=== PATIENT | female | born 1990 ===

== ENCOUNTER 2017-01-30 09:54 | Emergency (ER) | payer MEDICAID, OTHER ==
[2017-01-30 10:23] VITALS: O2SAT 98
[2017-01-30 10:25] VITALS: BP 113/69; PULSE 65; RESP 16; TEMP 98.3
--- NOTE | 2017-01-30 12:46 | ED PDOC ---
HPI: General Adult Time Seen by Provider: 01/30/17 10:18 Chief Complaint (Nursing): Lower Extremity Problem/Injury History Per: Patient Additional Complaint(s): Pt. states for the past 2 weeks she's had b/l lower leg pain R > L. States that she is currently 33 weeks . She was seen by Dr. Lopez OBGYN, yesterday who instructed her to come to ED for a doppler US yesterday but states it was already late. Denies SOB, palpitations, vaginal bleeding, abdominal pain, hx of DVT or PE, hemoptysis. Past Medical History Reviewed: Historical Data, Nursing Documentation, Vital Signs Vital Signs: Last Vital Signs Temp 98.3 F 01/30/17 10:15 Pulse 65 01/30/17 10:15 Resp 16 01/30/17 10:15 BP 113/69 01/30/17 10:15 Pulse Ox 98 01/30/17 12:49 - Family History Family History: States: No Known Family Hx - Immunization History Hx Tetanus Toxoid Vaccination: No Hx Influenza Vaccination: Yes Hx Pneumococcal Vaccination: No - Home Medications Home Medications: Ambulatory Orders Medication Instructions Recorded Multivit/Folic Acid/I 1 tab PO DAILY 05/25/16 [ Plus] - Allergies Allergies/Adverse Reactions: Allergies Allergy/AdvReac Type Severity Reaction Status Date / Time No Known Allergies Allergy Verified 05/25/16 13:11 Review of Systems ROS Statement: Except As Marked, All Systems Reviewed And Found Negative Musculoskeletal: Positive for: Leg Pain Physical Exam - Physical Exam Appears: Positive for: Well, Non-toxic, No Acute Distress Skin: Positive for: Normal Color, Warm. Negative for: Rash Cardiovascular/Chest: Positive for: Regular Rate, Rhythm. Negative for: Tachycardia Respiratory: Positive for: CNT, Normal Breath Sounds Gastrointestinal/Abdominal: Positive for: Normal Exam, Soft. Negative for: Tenderness Back: Positive for: Normal Inspection. Negative for: L CVA Tenderness, R CVA Tenderness Extremity: Positive for: Normal ROM. Negative for: Calf Tenderness (or swelling b/l) Neurologic/Psych: Positive for: Alert, Oriented - ECG O2 Sat by Pulse Oximetry: 98 - Progress ED Course And Treament: Pt. left prior to obtaining results. Duplex b/l lower extremity: no DVT. Results d/w Dr. Lopez and will f/u with patient. Disposition - Clinical Impression Clinical Impression: Leg pain - Patient ED Disposition Is Patient to be Admitted: No - Disposition Disposition: Eloped Disposition Time: 13:35 Condition: FAIR Forms: [facility] (Slovenian)
--- NOTE | 2017-01-30 15:05 | US ---
PROCEDURE: Bilateral lower extremity venous duplex Doppler. HISTORY: pain COMPARISON: None available. TECHNIQUE: Bilateral common femoral, superficial femoral, popliteal and posterior tibial veins were evaluated. Flow was assessed with color Doppler, compressibility, assessment of phasic flow and augmentation response. FINDINGS: COMMON FEMORAL VEIN: Right CFV: Unremarkable. Left CFV: Unremarkable. SUPERFICIAL FEMORAL VEIN: Right SFV: Unremarkable. Left SFV: Unremarkable. POPLITEAL VEIN: Right Popliteal: Unremarkable. Left Popliteal: Unremarkable. POSTERIOR TIBIAL VEIN: Right PTV: Unremarkable. Left PTV: Unremarkable. OTHER FINDINGS: None. IMPRESSION: No evidence of deep venous thrombosis.
== END 2017-01-30 13:35 | disposition left against medical advice (07) ==
LOC: H.ER 09:54
DX: M79.606 Pain in leg, unspecified (principal); Z3A.33 33 weeks gestation of pregnancy

== ENCOUNTER 2017-03-15 08:04 | Inpatient (IN) | payer OTHER ==
[2017-03-15] MEDS: Lactated Ringer's 1,000 ML IV SCH (08:05)
[2017-03-15 08:18] VITALS: BMI 31.6
[2017-03-15] MEDS ORDERED: Oxytocin 30 units/LR 500ML 30 U/500 ML BAG IV SCH (08:30)
[2017-03-15] MEDS ORDERED: Lactated Ringer's 1,000 ML IV SCH (08:30)
--- NOTE | 2017-03-15 08:50 | OBADHP ---
Datetime: 03/15/2017 08:44 Admit Comment, IP Provider: Came in in full labor Admit and anticipate delivery Pelvic Type - PN: Adequate Extremities - PN: Normal Abdomen - PN: Abnormal Breast - PN: Normal Lungs - PN: Normal Thyroid - PN: Normal Neurologic - PN: Normal HEENT - PN: Normal General - PN: Normal Presentation-Admit: cephalic FHR - Baseline A Provider: 150 Membranes, Provider: Intact Contraction Comments Provider: q2 min Comments, ACOG Physical Exam: ABD gravid fundus at term NT, ext no calf tenderness Gestation - Est Wks by US: 39 wks IP Hx Assessment: The History has been Reviewed and is Current Vital Signs Provider: Reviewed IP Chief Complaint: Uterine contractions NICHD Variability Prov Fetus A: Moderate 6-25bpm NICHD Accel Fetus A IP Provider: [id number] NICHD Decel Fetus A IP Provider: None Dilatation, Provider: 8-9 Effacement, Provider: 100% Genitourinary Exam: Normal DTRs - PN: Normal EGA AdmitDate IP: 39.2 IP Adm Impression: Term, intrauterine ; Active labor IP Admit Plan: Admit to unit; Initiate labor protocol
[2017-03-15] MEDS ORDERED: Oxycodone/Acetaminophen 5/325 mg Tab PO PRN ×2 (09:01→13:04)
[2017-03-15 09:24] LABS: BASO % 0.3 % (0.0-2.0); EOS % 0.4 % (0.0-4.0); LYMPH # 3.5 K/uL (1.0-4.3); LYMPH % 35.6 % (20.0-40.0); MEAN CELL VOLUME 83.1 fl (81.0-99.0); MEAN CORPUSCULAR HGB CONC 33.6 g/dL (33.0-37.0); MEAN PLATELET VOLUME 9.5 fl (7.2-11.7); MONO # 0.8 K/uL (0.0-0.8); MONO % 8.4 % (0.0-10.0); NEUT # 5.5 K/uL (1.8-7.0); NEUT % 55.3 % (50.0-75.0); NRBC % 0.1 % (0.0-0.0); WHITE BLOOD COUNT 9.9 K/uL (4.8-10.8)
[2017-03-16] MEDS: Lactated Ringer's 1,000 ML IV SCH (02:17)
[2017-03-16 06:07] LABS: HEMATOCRIT 29.2 % (34.0-47.0); MEAN CELL VOLUME 83.6 fl (81.0-99.0); MEAN CORPUSCULAR HEMOGLOBIN 28.1 pg (27.0-31.0); MEAN CORPUSCULAR HGB CONC 33.6 g/dL (33.0-37.0); RED CELL DISTRIBUTION WIDTH 14.3 % (11.5-14.5); WHITE BLOOD COUNT 10.8 K/uL (4.8-10.8)
--- NOTE | 2017-03-16 08:22 | OBPPN ---
Datetime: 03/16/2017 08:17 PP Pain Prov: Within normal limits PP Pain Prov comment: No SOB, chest pains or leg pains PP Nausea Prov: Denies PP Flatus Prov: Yes PP BM Prov: No PP Nausea Prov comment: voiding well PP Breasts Prov: Normal PP Lungs Prov: Normal PP Abdomen/Uterus Prov: Abnormal PP Lochia Prov: Normal PP Vulva/Perineum Prov: Normal PP CVA Tenderness Prov: Normal PP Extremities Prov: Normal PP C/S Incision Prov: Not Applicable PP Progress Prov: Normal PP Comments Phys Exam Prov: breast not engorged NT, Abd soft ND, fundus firm NT below the umb. Ext no calf tenderness PP Impression Prov: Normal progression PP Plan Prov: Continue present management PP Progress Note Prov: start on FeSO4, OOB and ambulation, increased po fluids Continue PP care IP PP Procedures: None
[2017-03-16] MEDS ORDERED: Prenatal Multivit/Folic Acid/Iron Tab PO SCH (09:00)
--- NOTE | 2017-03-17 10:37 | OBPPN ---
Datetime: 03/17/2017 10:31 PP Pain Prov: Within normal limits PP Nausea Prov: Denies PP Flatus Prov: Yes PP BM Prov: Yes PP Breasts Prov: Normal PP Heart Prov: Normal PP Lungs Prov: Normal PP Abdomen/Uterus Prov: Normal PP Lochia Prov: Normal PP Vulva/Perineum Prov: Normal PP CVA Tenderness Prov: Normal PP Extremities Prov: Normal PP Progress Prov: Normal PP Impression Prov: Normal progression PP Plan Prov: Continue present management PP Progress Note Prov: dc home today rto 5-6 weeks IP PP Procedures: None Vital Signs Provider PP: Reviewed; Within Normal Limits
--- NOTE | 2017-03-17 10:38 | OBDCSUM ---
Datetime: 03/17/2017 10:37 Discharged to, Provider: Home Follow up at, Provider: Dr Lopez Disch Instr Activity: Bedrest; May be up to bathroom; May be up for meals; May Shower Disch Instr Diet: Regular Discharge Instructions, Provider: Specific instructions as noted Discharge Diagnosis, Provider: Term Delivered Discharge Time: 03/17/2017 10:37 Follow up in weeks, Provider: 5-6 weeks in office Disch Referrals: None Disch Activity Restrictions: No exercising; No lifting; No driving; Minimize walking; Minimize stair -climbing; No sexual activity; Nothing in vagina - [place], tampons, douche Contraception after Delivery: Undecided
[2017-03-17 19:31] VITALS: BP 147/59; PULSE 66; RESP 20; TEMP 98; O2SAT 100
== END 2017-03-17 15:10 | disposition home or self-care (01) | DRG 373 ==
LOC: H.EROB2 08:04 → H.L&D 08:28 → H.OB/GYN 13:00
PROVIDERS: ADMIT Specialist; ATTEND Specialist
PROC: 10E0XZZ Delivery of Products of Conception, External Approach (ICD-10-PCS; principal; 2017-03-15)
PROC: 4A1HXCZ Monitoring of Products of Conception, Cardiac Rate, External Approach (ICD-10-PCS; 2017-03-15)
DX: O62.3 Precipitate labor (principal); O77.0 Labor and delivery complicated by meconium in amniotic fluid; Z37.0 Single live birth; Z3A.39 39 weeks gestation of pregnancy